=== PATIENT | female | born 1960 | race Caucasian/White ===

== ENCOUNTER → 2017-09-12 | Outpatient (CLI) | payer BC ==
[~2017-09-12] MED LIST: ADVIL200 MG PO; ALLERGY SYRING1 EAC3 MC; ATIVAN0.5 MG PO; B COMPLEX #11 EACH PO; BENADRYL25 MG PO; CIPRO500 MG PO; COENZYME Q10200 M2 PO; DAILY VALUE1 EACH PO; ELAVIL10 MG PO; GABAPENTIN600 MG PO; NATURE-THRO113.75 MG PO; NATURE-THROID65 MG PO; NEURONTIN100 MG PO; NEURONTIN300 MG PO; PANTOPRAZOLE SO40 MG PO; PEPCID20 MG PO; PHENERGAN-CODE120 ML PO; PROGESTERONE50 MG/ML IM; RIBAVIRIN200 MG PO; SINGULAIR10 MG PO; SOVALDI400 MG PO; SUPER OMEGA-31000 MG PO; TURMERIC500 MG PO; ZOFRAN8 MG PO
== END | disposition home or self-care (01) ==
LOC: NUC 07:47
DX: K82.8 Other specified diseases of gallbladder (principal); K80.80 Other cholelithiasis without obstruction
CPT/HCPCS: 78226; A9537